=== PATIENT | female | born 1985 | race Caucasian/White ===

== ENCOUNTER → 2024-07-27 13:07 | Outpatient (REF) | payer OTHER, SELFPAY | LOC: HWWDC 13:07 | PROVIDERS: ATTENDING PHYSICIAN Nurse Practitioner Family; FAMILY PHYSICIAN Internal Medicine | DX: Z12.31 Encounter for screening mammogram for malignant neoplasm of breast (principal) | CPT/HCPCS: 77063; 77067 ==

== ENCOUNTER 2024-09-06 05:54 | Day surgery (SDC) | payer OTHER, SELFPAY ==
[2024-09-06 06:06] VITALS: BP 116/68
[2024-09-06 06:11] VITALS: BMI 26.8
[2024-09-06] MEDS: NORMOSOL-R/PLASMALYTE-A 1000 IV (06:23)
[2024-09-06] MEDS: TYLENOL 1000 MG PO (06:24)
--- NOTE | 2024-09-06 06:37 | HP.FOC2 ---
Focused History & Physical
Chief Complaint
HPI:
Chief Complaint: Subcutaneous lipoma
HPI / Indication for Planned Procedure: Patient is a 39-year-old female presenting for scheduled excision of a known left costal margin/abdominal lipomatous mass measuring about 4 to 5 cm.
Relevant Past Medical History: Other (Asthma as a child, thyroid nodule)
Relevant Social History: Negative
Relevant Family History: Negative
Relevant Past Surgical History: Negative
Review of Systems
Review of Pertinent Systems: All Systems Negative
Medication
See Medication form for detailed medications: Yes
Medication List (including Herbals & OTC):
Women's Multi 1 dose PO DAILY 08/30/24
Medications Reviewed: Yes
Allergies and Reactions
Patient has Allergies: No
Noted Allergies and Reactions:
Allergy/AdvReac Type Severity Reaction Status Date / Time
No Known Allergies Allergy Unverified 09/06/24 06:06
Pertinent Physical Exam
All Other Systems: Negative
Head/Neck: Normal
Lungs: Normal
Heart: Normal
Abdomen: Other (Left lateral lipomatous mass and subcutaneous abdominal wall)
Extremities: Normal
Neurological: Normal
Diagnosis / Assessment
39-year-old female presenting for scheduled excision subcutaneous lipoma
Plan / Procedure
Excision subcutaneous lipoma, left lateral abdominal wall
Anesthesia/Sedation to be done by Anesthesia Provider: Yes
--- NOTE | 2024-09-06 06:38 | W.SUR.PREOP ---
Pre-Operative Surgical Note
-
I have examined this patient prior to the performance of the scheduled procedure.
The patient's condition is unchanged from the time of the current History and
Physical and the patient is able to undergo the scheduled procedure.
--- NOTE | 2024-09-06 07:23 | W.IMMPOSTOP ---
Addendum entered and electronically signed by Gordon Johnson MD 09/06/24 07:29:
#[id number]
correction: IAN Coleman
Original Note:
Surgical Immed Post Op Note
-
Primary Surgeon: Gordon Johnson MD
Assisting Surgeon: Esteban Coleman
Pre-op Diagnosis: Subcutaneous lipoma left lateral abdomen
Post-op Diagnosis: Subcutaneous lipoma, left lateral abdomen; 4 cm
Procedure Performed: Excision left lateral subcutaneous abdominal wall lipoma
Anesthesia Type: MAC +1% lidocaine/0.25% Marcaine
Specimen / Cultures: Lipomatous mass
Estimated Blood Loss: 2 mL
Complications: None immediate
Operative Findings: Well encapsulated lipomatous mass within the subcutaneous tissues. Excised in its entirety
[2024-09-06 07:25] VITALS: BP 102/60
[2024-09-06 07:30] VITALS: BP 100/63
[2024-09-06 07:45] VITALS: BP 102/67
[2024-09-06 08:00] VITALS: BP 98/67
[2024-09-06 08:05] VITALS: BP 102/72
== END 2024-09-06 08:25 | disposition home or self-care (01) ==
LOC: SDS 05:54
PROVIDERS: ATTENDING PHYSICIAN Surgery
DX: D17.1 Benign lipomatous neoplasm of skin and subcutaneous tissue of trunk (principal)
CPT/HCPCS: 11406; 12032; 88304

== ENCOUNTER → 2025-06-27 11:11 | Outpatient (REF) | payer OTHER, SELFPAY | LOC: PNTC 11:11 | PROVIDERS: ATTENDING PHYSICIAN Obstetrics & Gynecology | DX: Z36.1 Encounter for antenatal screening for raised alphafetoprotein level (principal); Z33.3 Pregnant state, gestational carrier; O09.812 Supervision of pregnancy resulting from assisted reproductive technology, second trimester; O09.522 Supervision of elderly multigravida, second trimester | CPT/HCPCS: 76816 ==